=== PATIENT | male | born 1960 | race Two or more races ===

== ENCOUNTER 2017-09-13 04:14 | Emergency (ER) | payer BC ==
[2017-09-13] MEDS ORDERED: Metoclopramide 10 MG/2 ML SDV IVPUSH STA (04:34)
[2017-09-13] MEDS ORDERED: HYDROmorphone 1 MG/ML Syringe IVPUSH ONE ×3 (04:44→07:14)
--- NOTE | 2017-09-13 04:47 | EDM.PDOC ---
ED HPI GENERAL MEDICAL PROBLEM - General Chief Complaint: Abdominal Pain Stated Complaint: VOMMITING,LEFT SIDE PAIN BACK PAIN Time Seen by Provider: 09/13/17 04:34 Source of Information: Reports: Patient History Limitations: Reports: No Limitations - History of Present Illness INITIAL COMMENTS - FREE TEXT/NARRATIVE: 57-year-old male presents to the ED with gradual onset of left upper quadrant abdominal pain. Associated dysuria urgency and frequency which she reports is not all that rare for him. He had abdominal trauma requiring temporary ileostomy and resection of bowel and repair of left kidney with temporary nephrostomy tube drainage area patient has recurrent urinary tract infections particularly of the urinary bladder and is on a medication daily to try and prevent bladder and kidney infection. He felt for rotation yesterday and perhaps low-grade fever. Fever chills but no definitive rigors. Started vomiting about 7:00 last evening and has continued to vomit bilious material without blood. Bowels did work yesterday but he felt like they were incompletely emptied. Pain does radiate into his left flank. States the pain is 9 out of 10. States injuries occurred about 12 years ago. He doesn't think his pancreas or spleen were damaged from the trauma. Onset: Gradual Onset Date: 09/12/17 Onset Time: 19:00 (Is been vomiting since about 1900 hrs. last night.) Duration: Hour(s):, Constant Location: Reports: Abdomen (Left upper quadrant abdominal pain but occasionally radiates across to the right upper abdomen. Radiates into the left flank and somewhat down into the left hemiabdomen.) Quality: Reports: Ache, Other (Occasional colicky component to the pain but otherwise it's a deep boring aching pain.) Severity: Severe Improves with: Reports: None (9 out of 10.), Other (Vomiting does not relieve the pain.) Worsens with: Reports: None Context: Denies: Activity, Exercise, Lifting, Sick Contact, Trauma, Other Associated Symptoms: Reports: Diaphoresis, Fever/Chills (Mild last evening chills for sure), Loss of Appetite, Malaise, Nausea/Vomiting (Intractable nausea and vomiting since 1:00 last night.). 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) (No medication will stay down.) Left Upper Abdominal Pain Score (Numeric/FACES): 8 Bilateral Lower Abdomen Pain Score (Numeric/FACES): 8 - Related Data Allergies Allergy/AdvReac Type Severity Reaction Status Date / Time No Known Allergies Allergy Verified 09/13/17 04:25 Home Meds: Home Meds Doxazosin [Doxazosin Mesylate] 2 mg PO DAILY 09/13/17 [History] Levofloxacin [Levaquin] 500 mg PO DAILY #7 tab 09/13/17 [Rx] Ondansetron [Zofran] 4 mg BUCCAL Q6H PRN #5 tab 09/13/17 [Rx] oxyCODONE HCl/Acetaminophen [Percocet 5-325 mg Tablet] 1 - 2 each PO Q4H PRN # 12 tablet 09/13/17 [Rx] Past Medical History Genitourinary History: Reports: Urostomy Other Genitourinary History: nephrostomy - Past Surgical History GI Surgical History: Reports: Other (See Below) Other GI Surgeries/Procedures: illeostomy Male Surgical History: Reports: Other (See Below) Other Male Surgeries/Procedures: bladder repair Social & Family History - Tobacco Use Smoking Status *Q: Never Smoker - Recreational Drug Use Recreational Drug Use: No - Living Situation & Occupation Living situation: Reports: Occupation: Employed ED ROS GENERAL - Review of Systems Review Of Systems: See Below Constitutional: Reports: Fever, Chills, Malaise, Weakness, Fatigue HEENT: Reports: Glasses Respiratory: Reports: No Symptoms Cardiovascular: Reports: No Symptoms Endocrine: Reports: No Symptoms GI/Abdominal: Reports: Abdominal Pain (See history of present illness), Constipation, Decreased Appetite, Nausea, Vomiting (Intractable nausea and vomiting since 7:00 last night.). Denies: Diarrhea (Occasional problems with constipation) : Reports: Dysuria, Frequency, Urgency Musculoskeletal: Reports: Back Pain (Left flank pain) Skin: Reports: Diaphoresis (Late last evening.) Neurological: Reports: No Symptoms Psychiatric: Reports: No Symptoms Hematologic/Lymphatic: Reports: No Symptoms Immunologic: Reports: No Symptoms ED EXAM, GI/ABD - Physical Exam Exam: See Below Exam Limited By: No Limitations General Appearance: Alert, WD/WN, Moderate Distress (Appears to be injectedDiscomfort.) Eyes: Bilateral: Normal Appearance (No jaundice.) Throat/Mouth: Normal Inspection, Normal Oropharynx Head: Atraumatic, Normocephalic Neck: Normal Inspection, Supple, Non-Tender, Full Range of Motion. No: Lymphadenopathy (L), Lymphadenopathy (R) Respiratory/Chest: No Respiratory Distress, Lungs Clear, Normal Breath Sounds, No Accessory Muscle Use, Chest Non-Tender Cardiovascular: Regular Rate, Rhythm, No Edema, No Gallop, No Murmur, No Rub GI/Abdominal Exam: Soft, No Mass, Pelvis Stable, Guarding, Tender, Abnormal Bowel Sounds (Slightly hyperactive bowel sounds), Other (Large well-healed midline laparotomy wound from xiphisternum to pubic sepsis.). No: Rigid (Very tender left upper quadrant of the abdomen with guarding), Rebound (Male) Exam: No Hernia Back Exam: CVA Tenderness (L). No: CVA Tenderness (R) (Mild.) Extremities: Normal Inspection, Normal Range of Motion, Non-Tender, No Pedal Edema Neurological: Alert, Oriented, CN II-XII Intact, Normal Cognition, Normal Gait Psychiatric: Normal Affect, Normal Mood Skin Exam: Warm, Dry, Intact, Normal Color, No Rash Course - Vital Signs Last Recorded V/S: Last Vital Signs Temp 35.9 C 09/13/17 04:23 Pulse 83 09/13/17 04:23 Resp 16 09/13/17 04:23 BP 156/89 H 09/13/17 04:23 Pulse Ox 93 L 09/13/17 04:23 - Orders/Labs/Meds Orders: Active Orders 24 hr Category Date Time Status CULTURE BLOOD [BC] Stat Lab 09/13/17 05:20 Received CULTURE BLOOD [BC] Stat Lab 09/13/17 05:25 Received CULTURE URINE [RM] Stat Lab 09/13/17 04:30 Received Sodium Chloride 0.9% [Normal Saline] 1,000 ml Med 09/13/17 05:00 Active IV ASDIRECTED Blood Culture x2 Reflex Set [OM.PC] Stat Oth 09/13/17 04:44 Ordered Medication Orders Sodium Chloride (Normal Saline) 1,000 mls @ 500 mls/hr IV ASDIRECTED CHALINO Last Admin: 09/13/17 05:09 Dose: 500 mls/hr Labs: Laboratory Tests 09/13/17 09/13/17 09/13/17 Range/Units 04:30 04:35 04:35 WBC 10.27 H (4.23-9.07) K/mm3 RBC 5.09 (4.63-6.08) M/mm3 Hgb 15.3 (13.7-17.5) gm/L Hct 46.2 (40.1-51.0) % MCV 90.8 (79.0-92.2) fl MCH 30.1 (25.7-32.2) pg MCHC 33.1 (32.2-35.5) g/dl RDW Std Deviation 45.1 H (35.1-43.9) fL Plt Count 252 (163-337) K/mm3 MPV 10.1 (9.4-12.3) fl Neutrophils % (Manual) 77 H (40-60) % Band Neutrophils % 1 (0-10) % Lymphocytes % (Manual) 14 L (20-40) % Atypical Lymphs % 0 % Monocytes % (Manual) 6 (2-10) % Eosinophils % (Manual) 0 L (0.8-7.0) % Basophils % (Manual) 1 (0.2-1.2) Metamyelocytes % 1 Platelet Estimate Adequate Plt Morphology Comment Normal RBC Morph Comment Normal Sodium 140 (136-145) mEq/L Potassium 4.2 (3.5-5.1) mEq/L Chloride 101 (98-107) mEq/L Carbon Dioxide 29 (21-32) mEq/L Anion Gap 14.2 (5-15) BUN 14 (7-18) mg/dL Creatinine 1.3 (0.7-1.3) mg/dL Est Cr Clr Drug Dosing 64.73 mL/min Estimated GFR (MDRD) 57 (>60) mL/min BUN/Creatinine Ratio 10.8 L (14-18) Glucose 184 H (74-106) mg/dL Calcium 10.0 (8.5-10.1) mg/dL Total Bilirubin 0.8 (0.2-1.0) mg/dL AST 22 (15-37) U/L ALT 32 (16-63) U/L Alkaline Phosphatase 88 (46-116) U/L C-Reactive Protein < 0.2 (<1.0) mg/dL Total Protein 8.5 H (6.4-8.2) g/dl Albumin 4.2 (3.4-5.0) g/dl Globulin 4.3 gm/dL Albumin/Globulin Ratio 1.0 (1-2) Lipase 142 (73-393) U/L Urine Color Yellow (Yellow) Urine Appearance Turbid H (Clear) Urine pH 8.5 H (5.0-8.0) Ur Specific [place] 1.020 (1.005-1.030) Urine Protein 1+ H (Negative) Urine Glucose (UA) Negative (Negative) Urine Ketones Negative (Negative) Urine Occult Blood 1+ H (Negative) Urine Nitrite Positive H (Negative) Urine Bilirubin Negative (Negative) Urine Urobilinogen 0.2 (0.2-1.0) Ur Leukocyte Esterase 3+ H (Negative) Urine RBC 0-5 (0-5) /hpf Urine WBC 75-100 H (0-5) /hpf Urine WBC Clumps Moderate (NOT SEEN) /hpf Ur Epithelial Cells Not seen (0-5) /hpf Amorphous Sediment Moderate H (NOT SEEN) /hpf Urine Bacteria Many H (FEW) /hpf Urine Mucus Not seen (FEW) /hpf Meds: Medications Generic Name Dose Route Start Last Admin Trade Name Freq PRN Reason Stop Dose Admin Sodium Chloride 1,000 mls @ 500 mls/hr 09/13/17 05:00 09/13/17 05:09 Normal Saline IV 500 mls/hr ASDIRECTED CHALINO Administration Discontinued Medications Generic Name Dose Route Start Last Admin Trade Name Freq PRN Reason Stop Dose Admin Hydromorphone HCl 1 mg 09/13/17 04:44 09/13/17 05:00 Dilaudid IVPUSH 09/13/17 04:45 Not Given ONETIME ONE Hydromorphone HCl 0.5 mg 09/13/17 04:49 09/13/17 05:00 Dilaudid IVPUSH 09/13/17 04:50 Not Given ONETIME ONE Hydromorphone HCl Confirm 09/13/17 04:59 09/13/17 05:03 Dilaudid Administered 09/13/17 05:00 Not Given Dose 1 mg .ROUTE .STK-MED ONE Hydromorphone HCl 0.5 mg 09/13/17 05:01 09/13/17 07:01 Dilaudid IVPUSH 09/13/17 05:02 Not Given ONETIME ONE Hydromorphone HCl 1 mg 09/13/17 05:01 09/13/17 05:02 Dilaudid IVPUSH 09/13/17 05:02 1 mg ONETIME ONE Administration Hydromorphone HCl 0.5 mg 09/13/17 07:14 Dilaudid IVPUSH 09/13/17 07:15 ONETIME ONE Hydromorphone HCl Confirm 09/13/17 07:51 Dilaudid Administered 09/13/17 07:52 Dose 0.5 mg .ROUTE .STK-MED ONE Hydromorphone HCl Confirm 09/13/17 08:04 Dilaudid Administered 09/13/17 08:05 Dose 0.5 mg .ROUTE .STK-MED ONE Ceftriaxone Sodium 2 gm/ 100 mls @ 200 mls/hr 09/13/17 05:30 Sodium Chloride IV Q24H CHALINO Ceftriaxone Sodium 2 gm/ 100 mls @ 200 mls/hr 09/13/17 05:29 09/13/17 05:39 Sodium Chloride IV 09/13/17 05:58 200 mls/hr ONETIME ONE Administration Metoclopramide HCl 10 mg 09/13/17 04:34 09/13/17 04:40 Reglan IVPUSH 09/13/17 04:35 10 mg ONETIME STA Administration - Radiology Interpretation Free Text/Narrative:: 57-year-old male presents to the ED with gradually increasing pain left upper quadrant of the abdomen rate into his left flank. Patient has had previous traumatic abdominal injury is 12 years ago requiring transient nephrostomy tube drainage of the left kidney reimplantation of the left ureter. He had to have bladder reconstruction after temporarily ileostomy. Therefore he had part of his small bowel resected terminal ileum to reform part of his bladder. This is subsequently made a very prone to urinary tract infections. He states he takes medication daily try prevent bladder infections from occurring. A little ill yesterday with flulike illness and then developed fever and mild chills. Then developed nausea and vomiting and this is been intractable since 7:00 last night. Emesis is bilious without blood. He has associated dysuria urgency and frequency which he says is not all that abnormal for him. Has never had a kidney stone. To his knowledge his left kidney has been functioning well since traumatic injury 12 years ago. Plan IV normal saline at 500 mils an hour. Given Reglan 10 mg IV and Dilaudid 1 mg IV for nausea vomiting and pain relief. Routine labs including blood cultures and serum lipase and CRP to be collected. Urinalysis is already been collected by nursing staff. One view the abdomen will be done. If this does not show anything significant may go on to CT of the abdomen per renal protocol. - Re-Assessments/Exams Free Text/Narrative Re-Assessment/Exam: 09/13/17 05:25 Urinalysis is strongly positive for infection. Positive nitrates and 75-100 WBCs per high-power field with many bacteria appreciated. Urine culture ordered. Will give Rocephin 2 g IV this and his blood cultures 2 are collected. 09/13/17 05:48 Labs reveal a white count of 10.27 with a 77% neutrophils and 1 % band cells reported. Hemoglobin is 15.3 with hematocrit of 46.2. Platelet count is normal 252,000. Sodium is 140 with a potassium of 4.2. Chloride 11 with a bicarbonate of 29. Anion gap is 14.2. BUN is 14 with a creatinine of 1.3. GFR is 57. Glucose is 184 calcium normal at 10.0 total bilirubin 0.8. AST is 22 with an ALT of 32. C-reactive protein is less than 0.2. Lipase normal at 142. Urinalysis is strongly positive for infection with 3+ leukocyte esterase and 75-100 WBCs per high-power field and many bacteria appreciated. He is feeling much better with no further nausea or vomiting. In fact is asking for some Jell-O. 09/13/17 06:56 CT of the abdomen per renal protocol reveals a normal-appearing spleen and liver and pancreas. Both kidneys show mild perinephric stranding and are abnormal in shape---lobulated and shrunken. Previous infections ? Difficult to follow the ureters down from the left kidney. 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 There is evidence of previous fracture of the pubic symphysis. 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 No stones are identified in the urinary bladder or the distribution of the ureters. There is increased stool in the left transverse colon and a large amount of fluid distending several loops of small bowel suspicious for developing small bowl obstruction. . There are no air -fluid levels to suggest obstruction--only fluid. His colicky pain is coming back and therefore he will be given Dilaudid 0.5 mg IV once again. 09/13/17 07:49 He still having colicky type pain. Therefore decided to have him admitted to the hospital due to concerns of developing small bowel obstruction. He does admit that he has not felt any flatus passage for the last 16 hours. Last bowel movement was about 2300 hrs. last night and was normal. Discussed case with Dr. Purdy professional engineer surgeon and he feels due to the nature of his previous abdominal surgeries he is too high risk to operate on here and that he would be better managed in a larger center in case he needs urological surgical intervention as well. After discussion with the patient he is opted to try things at home to see if he opens up on his own over the next 12-24 hours versus traveling to [place] at this time. Is a sister who can drive him to [place] if pain worsens or he continues to vomit and fails to pass any flatus over the next 12-24 hours. Advise sips of clear fluids only. May use Zofran 4 mg under the tongue every 4 hours as necessary for nausea relief. Percocet tabs 5/325 one or 2 every 4-6 hours for pain relief if needed. Sent home 12 tablets. Ideally he needs to start Levaquin 500 mg tomorrow morning if his condition settles in terms that he opens up and passes flatus and has diarrhea. Departure - Departure Time of Disposition: 08:09 Disposition: Home, Self-Care 01 Condition: Fair Clinical Impression: Nausea and vomiting in adult patient, Gastroenteritis, Lower urinary tract infection, Small bowel obstruction, partial Abdominal pain Qualifiers: Abdominal location: left upper quadrant Qualified Code(s): R10.12 - Left upper quadrant pain - Discharge Information Prescriptions: Levofloxacin [Levaquin] 500 mg PO DAILY #7 tab Ondansetron [Zofran] 4 mg BUCCAL Q6H PRN #5 tab PRN Reason: nausea or vomiting oxyCODONE HCl/Acetaminophen [Percocet 5-325 mg Tablet] 1 - 2 each PO Q4H PRN # 12 tablet PRN Reason: pain relief. Referrals: Romain Pulido Jr, MD [Primary Care Provider] - Forms: ED Department Discharge Additional Instructions: Evaluation in the emergency room this morning in regards to left upper quadrant abdominal pain which has a strong colicky component. Associated nausea and vomiting since 7:00 last night. Normal bowel movements late last evening before midnight. No appreciable passage of gas or stool since that time. Lab work revealed a normal white count with no signs of systemic infection. Urine tested positive for a urinary tract infection and you therefore were given Rocephin 2 g intravenously for urinary tract infection. A plain film of the abdomen was carried out and did not reveal any air-fluid levels or signs of bowel obstruction. ET of the abdomen was carried out to rule out a stone in the left kidney or ureter to be causing your pain. No stones were identified however on CT exam CT did identify stool within the left hemicolon and the splenic flexure up overlying the left kidney. It also identified multiple small bowel loops filled with fluid. It is possible therefore that you are developing a small bowel obstruction. Curb because of multiple adhesions from previous surgical interventions. We discussed hospitalization here but are surgeon felt that she would be too high risk for surgical intervention here if it was required. He suggested that she would be better served by a larger center where urology and Gen. surgery are available. This would be [facility] in [place] as you received care through the [facility] system here in [place]. After discussion you opted to try things at home over the next 12-24 hours in terms of sips of clear fluids. The ulloa is that you're bowels began to move or you pass flatus or gas per rectum. This will likely be followed by diarrhea stool. If vomiting recurs or pain worsens in spite of medication suggest traveling to [facility] for admission to hospital. Today only clear fluids such as Gatorade Powerade water etc. Suggest no food. Jell-O would be okay. May use Zofran 4 mg under the tongue every 4 hours as necessary for relief of nausea or vomiting. May use Percocet tablets 12/01/24 one or 2 every 4-6 hours for pain relief if needed. You need to take an antibiotic tomorrow and a prescription was written for Levaquin 500 mg once daily for his lower urinary tract infection. However he could only start this medication if you're bowels are moving and you are no longer vomiting. - My Orders Last 24 Hours: My Active Orders 09/13/17 04:30 CULTURE URINE [RM] Stat 09/13/17 04:44 Blood Culture x2 Reflex Set [OM.PC] Stat 09/13/17 05:00 Sodium Chloride 0.9% [Normal Saline] 1,000 ml IV ASDIRECTED 09/13/17 05:20 CULTURE BLOOD [BC] Stat 09/13/17 05:25 CULTURE BLOOD [BC] Stat - Assessment/Plan Last 24 Hours: My Active Orders 09/13/17 04:30 CULTURE URINE [RM] Stat 09/13/17 04:44 Blood Culture x2 Reflex Set [OM.PC] Stat 09/13/17 05:00 Sodium Chloride 0.9% [Normal Saline] 1,000 ml IV ASDIRECTED 09/13/17 05:20 CULTURE BLOOD [BC] Stat 09/13/17 05:25 CULTURE BLOOD [BC] Stat
[2017-09-13] MEDS: HYDROmorphone 0.5 MG/0.5 ML SYRINGE ONE ×2 (04:57→05:03)
[2017-09-13] MEDS ORDERED: Sodium Chloride 0.9% 1,000 ML IV SCH (05:00)
[2017-09-13] MEDS ORDERED: HYDROmorphone 0.5 MG/0.5 ML SYRINGE IVPUSH ONE ×3 (05:01→08:00)
[2017-09-13] MEDS ORDERED: cefTRIAXone 2 GM in Sodium Chloride 0.9% 100 ML IV ONE (05:29)
[2017-09-13] MEDS ORDERED: cefTRIAXone 2 GM in Sodium Chloride 0.9% 100 ML IV SCH (05:30)
--- NOTE | 2017-09-13 07:03 | CT ---
CT abdomen and pelvis Technique: Multiple axial sections were obtained from above the dome of the diaphragm inferiorly through the pubic symphysis. Intravenous and oral contrast was not utilized. Comparison: No prior study. Penile implant is incidentally noted. Dilated small bowel loops are seen which contain fluid. Difficult to exclude a mild partial small bowel obstruction within the mid to distal small bowel. Visualized lung bases are clear. Liver shows no focal abnormality. Spleen appears within normal limits. Adrenal glands are unremarkable. Both kidneys are lobulated likely representing mild parenchymal scarring. Right ureter shows no dilatation. Cyst is noted within the left kidney measuring 2.8 cm. Left ureter appears to terminate within a portion of bowel raising and please correlate as to surgical history. No abnormal calcifications are seen within the visualized left ureter or within either kidney. Aorta shows no aneurysmal dilatation. Pancreas appears within normal limits. No retroperitoneal adenopathy or mesenteric abnormalities are seen. Surgical anastomotic sutures are seen within the right anterior lower abdomen. No pelvic mass or adenopathy is seen. Bladder wall is dilated likely from poor distention. Bone window settings shows mild scattered degenerative change within the spine. Impression: 1. Mildly dilated fluid-filled bowel raising the question of a mild mid to distal partial small bowel obstruction. 2. Left ureter appears to terminate within a portion of bowel and please correlate with patient's surgical history. 3. Cyst within the left kidney. Mild lobulation of both kidneys felt to relate to scarring. 4. Other incidental findings as noted above. Diagnostic code #3
--- NOTE | 2017-09-13 07:13 | CR ---
Abdomen: Supine view of the abdomen was obtained. Comparison: No prior study. Paucity of bowel gas is noted which is nonspecific. Surgical clips are seen overlying the right transverse process of L5 as well as single surgical clip overlying the right pelvis. No soft tissue abnormality is seen. Bony structures show nothing acute. Impression: 1. Incidental findings. Diagnostic code #2
[2017-09-13] MEDS ORDERED: HYDROmorphone 0.5 MG/0.5 ML SYRINGE ONE ×2 (07:51→08:04)
[2017-09-13] MEDS ORDERED: Ondansetron 4 MG/2 ML SDV IVPUSH ONE (08:06)
[2017-09-13 10:56] VITALS: BP 130/79
== END 2017-09-13 08:25 | disposition home or self-care (01) ==
LOC: JD.ED 04:14
DX: K56.600 Partial intestinal obstruction, unspecified as to cause (principal); K52.9 Noninfective gastroenteritis and colitis, unspecified; N39.0 Urinary tract infection, site not specified; Z79.899 Other long term (current) drug therapy
CPT/HCPCS: 36415; 74018; 74018-26; 74176; 74176-26; 80053; 81001; 83690; 85025; 86140; 87040; 87086; 96361; 96365; 96375; 96376; 99285; 99285-25; J0696; J1170; J2405; J2765; J7030; J7040

== ENCOUNTER 2019-07-10 06:39 | Emergency (ER) | payer BC ==
[2019-07-10] MEDS ORDERED: Ondansetron 4 MG/2 ML SDV IVPUSH ONE ×2 (07:20→10:30)
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
[2019-07-10] MEDS ORDERED: Lactated Ringers 1,000 ML IV SCH (07:30)
--- NOTE | 2019-07-10 10:07 | CR ---
Abdomen: Supine and upright views of the abdomen were obtained. Comparison: Previous abdominal x-ray of 09/13/17. No free air is identified. Small amount of gas is scattered within the abdomen which is unremarkable. No abnormal calcifications or discrete soft tissue abnormality seen. Several surgical clips are seen within the right upper pelvis. Impression: 1. Nothing acute is seen on two-view abdominal x-ray. Diagnostic code #2 This report was dictated in [place] Standard Time
[2019-07-10] MEDS ORDERED: cefTRIAXone 1 GM in Sodium Chloride 0.9% 100 ML IV SCH (13:30)
[2019-07-10] MEDS ORDERED: Metoclopramide 10 MG/2 ML SDV IVPUSH ONE (13:49)
[2019-07-10 14:17] VITALS: BP 158/93; PULSE 78
== END 2019-07-10 14:15 | disposition home or self-care (01) ==
LOC: JD.ED 06:39
DX: N39.0 Urinary tract infection, site not specified (principal); B96.20 Unspecified Escherichia coli [E. coli] as the cause of diseases classified elsewhere; Z16.10 Resistance to unspecified beta lactam antibiotics; N12 Tubulo-interstitial nephritis, not specified as acute or chronic; Z79.899 Other long term (current) drug therapy
CPT/HCPCS: 36415; 51798; 74019; 80053; 81001; 83690; 85007; 85027; 87086; 96361; 96365; 96375; 96376; 99284; J0696; J2405; J2765; J7050; J7120; 87088; 87186; 99283

== ENCOUNTER 2019-07-14 13:47 | Emergency (ER) | payer BC ==
[2019-07-14 14:41] VITALS: BP 126/78; PULSE 70
[2019-07-14] MEDS ORDERED: Ertapenem 1 GM in Sodium Chloride 0.9% 50 ML IV ONE (14:44)
[2019-07-14] MEDS ORDERED: Sodium Chloride 0.9% 10 ML Syringe FLUSH PRN (14:44)
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
--- NOTE | 2019-07-14 16:48 | CT ---
Abdominal and pelvic CT (without contrast) Technique: Multiple axial sections were obtained from above the dome of the diaphragm inferiorly through the pubic symphysis. Intravenous contrast and oral contrast not utilized. Study has been performed as a ureteral stone protocol. Comparison: Previous noncontrast CT study of 09/13/17. Findings: Visualized lung bases show nothing acute. Small stable pleural-based nodule is seen within the lingula. Small pleural-based nodule noted within the right lung base. These findings are unchanged from previous exam there likely incidental. Small nodule is noted within the right middle lung which is not included on previous exam. Small nodule in noted adjacent to the major fissure within the right lung base which is stable. Liver contains no focal abnormality. Gallbladder contains no calcified gallstones. Adrenal glands show no nodule. Pancreas appears within normal limits. Aorta shows no aneurysm. No retroperitoneal adenopathy or mesenteric abnormalities are seen. Surgical material seen anteriorly within the right lower abdomen. Penile implant is noted. Bladder is somewhat elongated in shape with slight trabeculation which is a stable finding from previous exam. Appendix not visualized with certainty. Left kidney shows hydronephrosis as well as dilated left ureter down to its attachment within the left colon. This dilatation is more prominent on prior CT study and difficult to exclude a small stricture at the junction to the bowel. Right ureter shows no dilatation. Several surgical clips are seen adjacent to the right ureter within the mid pelvis. Ill-defined cysts are noted within the right kidney. Right kidney shows cortical thinning and lobulation compatible scarring. Less scarring is seen within the left kidney. No pelvic mass or adenopathy is seen. Small fat-containing left inguinal hernia is noted. Bone window settings were reviewed which shows slight degenerative change within the spine. Impression: 1. Dilated left ureter which terminates within a portion of the left colon. This dilatation is increased from previous CT exam and difficult to exclude stenosis at the distal left ureter at its junction to the colon. 2. Areas of scarring and cortical thinning within the right kidney with lesser scarring within the left kidney. Cysts within the right kidney are noted. 3. Nodules within both lung bases most likely benign since they are unchanged from previous exam. 4. Other incidental findings. No other acute finding is appreciated. Diagnostic code #3 This report was dictated in [place] Standard Time
== END 2019-07-14 17:24 | disposition home or self-care (01) ==
LOC: JD.ED 13:47
DX: R30.0 Dysuria (principal)
CPT/HCPCS: 74176; 96365; 99284; J1335; J7050; 99283

== ENCOUNTER 2019-12-30 03:35 | Emergency (ER) | payer BC ==
[2019-12-30 03:45] VITALS: BP 158/108; PULSE 96
[2019-12-30] MEDS ORDERED: Ondansetron 4 MG Tab.DIS PO ONE (03:56)
--- NOTE | 2019-12-30 04:11 | EDM.PDOC ---
ED HPI GENERAL MEDICAL PROBLEM - General Chief Complaint: Genitourinary Problem Stated Complaint: possible kidney infection Time Seen by Provider: 12/30/19 03:42 Source of Information: Reports: Patient History Limitations: Reports: No Limitations - History of Present Illness INITIAL COMMENTS - FREE TEXT/NARRATIVE: The patient presents with recurrent UTIs. He has a history of UTIs and he is on antibiotics daily. He has some low back pain and nausea. This is like his other UTIs. He has no dysuria. He has no fever or chills. He has no cough, congestion, shortness of breath or abdominal pain. Onset: Gradual Duration: Day(s): Location: Reports: Back Quality: Reports: Ache Severity: Moderate Improves with: Reports: None Worsens with: Reports: None Associated Symptoms: Reports: Nausea/Vomiting. Denies: Chest Pain, Cough, Fever /Chills, Headaches, Shortness of Breath Bilateral Flank Pain Score (Numeric/FACES): 8 - Related Data Allergies Allergy/AdvReac Type Severity Reaction Status Date / Time No Known Allergies Allergy Verified 07/14/19 14:36 Home Meds: Home Meds Doxazosin [Doxazosin Mesylate] 2 mg PO DAILY 09/13/17 [History] Ondansetron [Zofran] 4 mg BUCCAL Q6H PRN #5 tab 09/13/17 [Rx] oxyCODONE HCl/Acetaminophen [Percocet 5-325 mg Tablet] 1 - 2 each PO Q4H PRN # 12 tablet 09/13/17 [Rx] Tetracycline HCl 500 mg PO BID #14 capsule 12/30/19 [Rx] Past Medical History HEENT History: Reports: Impaired Vision Other HEENT History: Wears glasses Genitourinary History: Reports: Hydronephrosis, Urostomy, UTI, Recurrent Other Genitourinary History: nephrostomy - Past Surgical History GI Surgical History: Reports: Other (See Below) Other GI Surgeries/Procedures: illeostomy Male Surgical History: Reports: Other (See Below) Other Male Surgeries/Procedures: bladder repair Social & Family History - Tobacco Use Smoking Status *Q: Never Smoker - Recreational Drug Use Recreational Drug Use: No - Living Situation & Occupation Living situation: Reports: Occupation: Employed ED ROS GENERAL - Review of Systems Review Of Systems: See Below Constitutional: Reports: No Symptoms HEENT: Reports: No Symptoms Respiratory: Reports: No Symptoms Cardiovascular: Reports: No Symptoms Endocrine: Reports: No Symptoms GI/Abdominal: Reports: Nausea. Denies: Abdominal Pain, Vomiting : Reports: Flank Pain Musculoskeletal: Reports: Back Pain ED EXAM, GI/ABD - Physical Exam Exam: See Below Exam Limited By: No Limitations General Appearance: Alert, No Apparent Distress Ears: Normal External Exam Nose: Normal Inspection Head: Atraumatic, Normocephalic Neck: Normal Inspection Respiratory/Chest: No Respiratory Distress, Lungs Clear, Normal Breath Sounds Cardiovascular: Regular Rate, Rhythm, No Edema, No Murmur GI/Abdominal Exam: Soft, Non-Tender, No Organomegaly, No Mass Back Exam: Normal Inspection Extremities: Normal Inspection Course - Vital Signs Last Recorded V/S: Last Vital Signs Temp 97.9 F 12/30/19 03:42 Pulse 96 12/30/19 03:42 Resp 19 12/30/19 03:42 BP 158/108 H 12/30/19 03:42 Pulse Ox 96 12/30/19 03:42 - Orders/Labs/Meds Orders: Active Orders 24 hr Category Date Time Status CULTURE URINE [RM] Stat Lab 12/30/19 03:50 Received UA W/MICROSCOPIC [URIN] Stat Lab 12/30/19 03:50 Results cefTRIAXone 1 GM with Lidocaine 1% 2.1 ML IM Med 12/30/19 04:15 Ordered cefTRIAXone [Rocephin] 1 gm Lidocaine 1% [Xylocaine 1%] 2.1 ml IM Q24H Labs: Laboratory Tests 12/30/19 Range/Units 03:50 Urine Color Yellow (Yellow) Urine Appearance Clear (Clear) Urine pH 7.0 (5.0-8.0) Ur Specific [place] 1.020 (1.005-1.030) Urine Protein Negative (Negative) Urine Glucose (UA) Negative (Negative) Urine Ketones Negative (Negative) Urine Occult Blood Trace-intact H (Negative) Urine Nitrite Positive H (Negative) Urine Bilirubin Negative (Negative) Urine Urobilinogen 0.2 (0.2-1.0) Ur Leukocyte Esterase 3+ H (Negative) Meds: Medications Discontinued Medications Generic Name Dose Route Start Last Admin Trade Name Freq PRN Reason Stop Dose Admin Ondansetron HCl 4 mg 12/30/19 03:56 Zofran Odt PO 12/30/19 03:57 ONETIME ONE - Re-Assessments/Exams Free Text/Narrative Re-Assessment/Exam: 12/30/19 04:07 His UA does show a UTI. I will send it for culture. His past cultures have been growing out E-coli resistant to many antibiotics. It appears the E-coli is susceptible to tetracyclines so I will get him on 500mg BID. Departure - Departure Time of Disposition: 04:15 Disposition: Home, Self-Care 01 Condition: Good Clinical Impression: UTI, Urinary tract infectious disease - Discharge Information *PRESCRIPTION DRUG MONITORING PROGRAM REVIEWED*: Not Applicable *COPY OF PRESCRIPTION DRUG MONITORING REPORT IN PATIENT WILLIAM: Not Applicable Prescriptions: Tetracycline HCl 500 mg PO BID #14 capsule Referrals: Romain Pulido Jr, MD [Primary Care Provider] - 1 Week Additional Instructions: Take the tetracycline 2 times per day. [facility] opens up at noon until 4 tomorrow. Take tylenol or motrin for any fever or pain. Take zofran as needed for nausea. Please return if you are worse. Sepsis Event Note - Evaluation Sepsis Screening Result: No Definite Risk - Focused Exam Vital Signs: Vital Signs Temp Pulse Resp BP Pulse Ox 12/30/19 03:42 97.9 F 96 19 158/108 H 96 Date Exam was Performed: 12/30/19 Time Exam was Performed: 04:04 - My Orders Last 24 Hours: My Active Orders 12/30/19 03:50 CULTURE URINE [RM] Stat UA W/MICROSCOPIC [URIN] Stat 12/30/19 04:15 cefTRIAXone 1 GM with Lidocaine 1% 2.1 ML IM cefTRIAXone [Rocephin] 1 gm Lidocaine 1% [Xylocaine 1%] 2.1 ml IM Q24H - Assessment/Plan Last 24 Hours: My Active Orders 12/30/19 03:50 CULTURE URINE [RM] Stat UA W/MICROSCOPIC [URIN] Stat 12/30/19 04:15 cefTRIAXone 1 GM with Lidocaine 1% 2.1 ML IM cefTRIAXone [Rocephin] 1 gm Lidocaine 1% [Xylocaine 1%] 2.1 ml IM Q24H
[2019-12-30] MEDS ORDERED: cefTRIAXone 1 GM, Lidocaine 1% 2.1 ML IM SCH ×2 (04:15)
== END 2019-12-30 04:40 | disposition home or self-care (01) ==
LOC: JD.ED 03:35
DX: N39.0 Urinary tract infection, site not specified (principal); Z79.899 Other long term (current) drug therapy
CPT/HCPCS: 81001; 87086; 87088; 87186; 99283; A9270; J0696; J2001

== ENCOUNTER 2020-03-01 14:17 | Emergency (ER) | payer BC ==
[2020-03-01 14:27] VITALS: BP 127/76; PULSE 110
[2020-03-01] MEDS ORDERED: Lidocaine 2% Jelly 10 ML Urojet MUCMEM ONE (15:40)
--- NOTE | 2020-03-01 15:47 | EDM.PDOC ---
ED HPI GENERAL MEDICAL PROBLEM - General Chief Complaint: Genitourinary Problem Stated Complaint: POSS UTI Time Seen by Provider: 03/01/20 14:27 Source of Information: Reports: Patient, RN Notes Reviewed - History of Present Illness INITIAL COMMENTS - FREE TEXT/NARRATIVE: 59 yr old male with voiding dysuria, urgency, frequency that started about a week ago with sx worse yesterday and today. also has noticed some swelling of the L scrotum. No fever or chills. Mild L low back pain. No nausea or vomiting. Hx of chronic UTI's. Pt states his Urologist has recomended daily nightime bernstein cath drainage but insurance will only cover 1 catheter per month so he has not been doing that. Was last seen here in the ED with similar sx 2 months ago. Left Scrotum Pain Score (Numeric/FACES): 8 - Related Data Allergies Allergy/AdvReac Type Severity Reaction Status Date / Time No Known Allergies Allergy Verified 03/01/20 14:26 Home Meds: Home Meds Doxazosin [Doxazosin Mesylate] 2 mg PO DAILY 09/13/17 [History] Ondansetron [Zofran] 4 mg BUCCAL Q6H PRN #5 tab 09/13/17 [Rx] oxyCODONE HCl/Acetaminophen [Percocet 5-325 mg Tablet] 1 - 2 each PO Q4H PRN #12 tablet 09/13/17 [Rx] Tetracycline HCl 500 mg PO BID #14 capsule 12/30/19 [Rx] Doxycycline [Vibramycin] 100 mg PO BID #20 tab 03/01/20 [Rx] Past Medical History HEENT History: Reports: Impaired Vision Other HEENT History: Wears glasses Genitourinary History: Reports: Hydronephrosis, Urostomy, UTI, Recurrent Other Genitourinary History: nephrostomy - Past Surgical History GI Surgical History: Reports: Other (See Below) Other GI Surgeries/Procedures: illeostomy Male Surgical History: Reports: Other (See Below) Other Male Surgeries/Procedures: bladder repair Social & Family History - Tobacco Use Smoking Status *Q: Never Smoker Second Hand Smoke Exposure: No - Caffeine Use Caffeine Use: Reports: Coffee - Recreational Drug Use Recreational Drug Use: No - Living Situation & Occupation Living situation: Reports: Occupation: Employed ED ROS GENERAL - Review of Systems Review Of Systems: See Below Constitutional: Denies: Fever, Chills, Diaphoresis HEENT: Reports: No Symptoms Respiratory: Denies: Shortness of Breath Cardiovascular: Denies: Chest Pain GI/Abdominal: Denies: Abdominal Pain, Nausea, Vomiting : Reports: Dysuria, Frequency, Urgency. Denies: Hematuria Musculoskeletal: Reports: Back Pain Skin: Denies: Rash Neurological: Reports: No Symptoms ED EXAM, RENAL/ - Physical Exam Exam: See Below General Appearance: Alert, No Apparent Distress Head: Atraumatic. No: Facial Swelling Neck: Supple Respiratory/Chest: No Respiratory Distress, Lungs Clear, Normal Breath Sounds Cardiovascular: Tachycardia GI/Abdominal: Soft, Non-Tender. No: Distended (Male) Exam: Scrotal Swelling (Mild L, Mild erythema bilat scrotum, mild tenderness post cords L scrotum) Extremities: Normal Inspection. No: Leg Pain Neurological: Alert, Oriented, No Motor/Sensory Deficits Skin Exam: Warm, Dry Course - Vital Signs Last Recorded V/S: Last Vital Signs Temp 98.5 F 03/01/20 14:22 Pulse 110 H 03/01/20 14:22 Resp 16 03/01/20 14:22 BP 127/76 03/01/20 14:22 Pulse Ox 97 03/01/20 14:22 - Orders/Labs/Meds Orders: Active Orders 24 hr Category Date Time Status Bernstein Catheter Insertion [Insert Urinary Catheter] [OM. Care 03/01/20 15:45 Ordered PC] Q24H Labs: Laboratory Tests 03/01/20 Range/Units 14:45 Urine Color Yellow (Yellow) Urine Appearance Cloudy H (Clear) Urine pH 7.0 (5.0-8.0) Ur Specific [place] 1.020 (1.005-1.030) Urine Protein Negative (Negative) Urine Glucose (UA) Negative (Negative) Urine Ketones Negative (Negative) Urine Occult Blood 1+ H (Negative) Urine Nitrite Negative (Negative) Urine Bilirubin Negative (Negative) Urine Urobilinogen 0.2 (0.2-1.0) Ur Leukocyte Esterase 3+ H (Negative) Urine RBC 5-10 H (0-5) /hpf Urine WBC >100 H (0-5) /hpf Ur Squamous Epith Cells 0-5 (0-5) /hpf Urine Bacteria Many H (FEW) /hpf Urine Mucus Not seen (FEW) /hpf Meds: Medications Discontinued Medications Generic Name Dose Route Start Last Admin Trade Name [place] PRN Reason Stop Dose Admin Lidocaine HCl 10 ml 03/01/20 15:40 03/01/20 15:48 Xylocaine 2% Jelly MUCMEM 03/01/20 15:41 10 ml ONETIME ONE Administration - Re-Assessments/Exams Free Text/Narrative Re-Assessment/Exam: 03/01/20 15:47 Ua strongly positive for UTI as expected. Departure - Departure Time of Disposition: 15:49 Disposition: Home, Self-Care 01 Condition: Fair Clinical Impression: Epididymitis UTI (urinary tract infection) Qualifiers: Urinary tract infection type: acute cystitis Hematuria presence: without hematuria Qualified Code(s): N30.00 - Acute cystitis without hematuria - Discharge Information Prescriptions: Doxycycline [Vibramycin] 100 mg PO BID #20 tab Instructions: Urinary Tract Infection, Adult, [id number], Epididymitis Referrals: Romain Pulido Jr, MD [Primary Care Provider] - Forms: ED Department Discharge Additional Instructions: Doxycycline antibiotic 100 mg twice daily for 10 days or until gone. Prescription has been sent electronically to [facility]. Doxycycline can cause skin rash with sun exposure so avoid direct sunlight as best you can while taking the antibiotic. Drink plenty of water to maintain hydration. Bernstein catheter with leg bag. Call your Urologist's nurse early next week for advice on how long to leave the catheter in. Follow up with your Urologist or clinic proivder if symptoms not improving over the next 3 to 5 days as expected. Return to ED as needed if symptoms worsening in any way. Sepsis Event Note (ED) - Evaluation Sepsis Screening Result: No Definite Risk - Focused Exam Vital Signs: Vital Signs Temp Pulse Resp BP Pulse Ox 03/01/20 14:22 98.5 F 110 H 16 127/76 97 - My Orders Last 24 Hours: My Active Orders 03/01/20 15:45 Bernstein Catheter Insertion [Insert Urinary Catheter] [OM.PC] Q24H - Assessment/Plan Last 24 Hours: My Active Orders 03/01/20 15:45 Bernstein Catheter Insertion [Insert Urinary Catheter] [OM.PC] Q24H
== END 2020-03-01 16:30 | disposition home or self-care (01) ==
LOC: JD.ED 14:17
DX: N30.00 Acute cystitis without hematuria (principal); N45.1 Epididymitis
CPT/HCPCS: 51702; 81001; 99283

== ENCOUNTER 2022-12-09 15:04 | Emergency (ER) | payer BC ==
[2022-12-09 16:05] LABS: APPEARANCE,URINE CLOUDY (Clear); BILIRUBIN,URINE NEGATIVE (Negative); COLOR,URINE YELLOW (Yellow); GLUCOSE,URINE NEGATIVE (Negative); KETONES,URINE NEGATIVE (Negative); LEUKOCYTE ESTERASE,URINE 3+ (Negative); NITRITE,URINE NEGATIVE (Negative); OCCULT BLOOD,URINE TRACE-LYSED (Negative); PROTEIN,URINE 1+ (Negative); UROBILINOGEN,URINE 0.2 (0.2-1.0)
[2022-12-09 16:40] LABS: BACTERIA,URINE MANY /hpf (FEW); MUCUS,URINE FEW /hpf (FEW); RBC,URINE 75-100 /hpf (0-5); SQUAMOUS EPITHELIAL CELLS,UR 0-5 /hpf (0-5); WBC CLUMPS,URINE MODERATE /hpf (NOT SEEN); WBC,URINE >100 /hpf (0-5)
[2022-12-09] MEDS: Sodium Chloride 0.9% 10 ML Syringe FLUSH PRN ×2 (16:46→20:18)
[2022-12-09 16:56] LABS: BASOPHILS ABSOLUTE AUTO 0.03 K/mm3 (0.01-0.08); BASOPHILS PERCENT AUTO 0.4 % (0.1-1.2); EOSINOPHILS ABSOLUTE AUTO 0.02 K/mm3 (0.04-0.54); EOSINOPHILS PERCENT AUTO 0.3 (0.8-7.0); HEMATOCRIT 17.9 % (40.1-51.0); IMMATURE GRAN ABSOLUTE AUTO 0.01 K/mm3 (0.00-0.10); IMMATURE GRAN PERCENT AUTO 0.1 % (<=1.0); LYMPHOCYTES ABSOLUTE AUTO 0.98 K/mm3 (1.32-3.57); LYMPHOCYTES PERCENT AUTO 12.9 % (21.8-53.1); MEAN CORPUSCULAR HEMOGLOBIN 20.2 pg (25.7-32.2); MEAN CORPUSCULAR HGB CONC 27.4 g/dl (32.2-35.5); MEAN CORPUSCULAR VOLUME 73.7 fl (79.0-92.2); MEAN PLATELET VOLUME 8.5 fl (9.4-12.3); MONOCYTES ABSOLUTE AUTO 0.61 K/mm3 (0.30-0.82); NEUTROPHILS ABSOLUTE AUTO 5.97 K/mm3 (1.78-5.38); NEUTROPHILS PERCENT AUTO 78.3 % (34.0-67.9); PLATELET COUNT,PLT 451 K/mm3 (163-337); RED BLOOD CELL COUNT 2.43 M/mm3 (4.63-6.08); WHITE BLOOD CELL COUNT,WBC 7.62 K/mm3 (4.23-9.07)
[2022-12-09 17:05] LABS: HEMOGLOBIN 4.9 gm/dl (13.7-17.5)
[2022-12-09 17:18] LABS: A/G RATIO 0.8 (1-2); ANION GAP 12.1 (5-15); BILIRUBIN TOTAL 0.3 mg/dL (0.2-1.0); BUN/CREATININE RATIO 15.4 (14-18); C-REACTIVE PROTEIN 3.1 mg/dL (<1.0); CALCIUM 8.5 mg/dL (8.5-10.1); CREATININE 1.3 mg/dL (0.7-1.3); EST CRCL DRUG DOSING (CG) 60.83 mL/min; POTASSIUM,K 4.1 mEq/L (3.5-5.1); PROTEIN TOTAL,TP 6.9 g/dl (6.4-8.2)
[2022-12-09] MEDS ORDERED: cefTRIAXone 2 GM in Sodium Chloride 0.9% 100 ML IV ONE (20:02)
[2022-12-09] MEDS ORDERED: Iopamidol 612 MG/ML 100 ML Bottle IVPUSH ONE (20:40)
[2022-12-09] MEDS ORDERED: Pantoprazole 40 MG Tab.CR PO ONE (21:26)
[2022-12-10 01:16] LABS: BASOPHILS ABSOLUTE AUTO 0.02 K/mm3 (0.01-0.08); BASOPHILS PERCENT AUTO 0.3 % (0.1-1.2); EOSINOPHILS ABSOLUTE AUTO 0.04 K/mm3 (0.04-0.54); EOSINOPHILS PERCENT AUTO 0.7 (0.8-7.0); HEMATOCRIT 27.1 % (40.1-51.0); IMMATURE GRAN ABSOLUTE AUTO 0.01 K/mm3 (0.00-0.10); IMMATURE GRAN PERCENT AUTO 0.2 % (<=1.0); LYMPHOCYTES ABSOLUTE AUTO 0.99 K/mm3 (1.32-3.57); LYMPHOCYTES PERCENT AUTO 16.5 % (21.8-53.1); MEAN CORPUSCULAR HEMOGLOBIN 23.8 pg (25.7-32.2); MEAN CORPUSCULAR HGB CONC 29.9 g/dl (32.2-35.5); MEAN CORPUSCULAR VOLUME 79.5 fl (79.0-92.2); MEAN PLATELET VOLUME 9.1 fl (9.4-12.3); MONOCYTES ABSOLUTE AUTO 0.61 K/mm3 (0.30-0.82); MONOCYTES PERCENT AUTO 10.2 % (5.3-12.2); NEUTROPHILS ABSOLUTE AUTO 4.33 K/mm3 (1.78-5.38); NEUTROPHILS PERCENT AUTO 72.1 % (34.0-67.9); PLATELET COUNT,PLT 420 K/mm3 (163-337); RED BLOOD CELL COUNT 3.41 M/mm3 (4.63-6.08)
[2022-12-10 01:28] LABS: HEMOGLOBIN 8.1 gm/dl (13.7-17.5)
[2022-12-10 01:37] LABS: A/G RATIO 0.7 (1-2); ALBUMIN 2.8 g/dl (3.4-5.0); ANION GAP 12.1 (5-15); BILIRUBIN TOTAL 0.2 mg/dL (0.2-1.0); BUN/CREATININE RATIO 13.8 (14-18); CALCIUM 8.2 mg/dL (8.5-10.1); CREATININE 1.3 mg/dL (0.7-1.3); EST CRCL DRUG DOSING (CG) 60.83 mL/min; POTASSIUM,K 4.1 mEq/L (3.5-5.1)
[2022-12-10 03:11] VITALS: BP 120/69; PULSE 75
== END 2022-12-10 02:15 | disposition home or self-care (01) ==
LOC: JD.ED 15:04
DX: K29.51 Unspecified chronic gastritis with bleeding (principal); N39.0 Urinary tract infection, site not specified; D64.9 Anemia, unspecified; Z87.19 Personal history of other diseases of the digestive system
CPT/HCPCS: 36415; 36430; 74177; 80053; 81001; 85025; 86140; 86850; 86900; 86901; 86922; 87040; 93005; 96365; 99285; A9270; J0696; J3490; P9016; Q9967

== ENCOUNTER 2023-01-05 17:42 | Emergency (ER) | payer BC ==
[2023-01-05] MEDS ORDERED: Sodium Chloride 0.9% 10 ML Syringe FLUSH PRN (18:12)
[2023-01-05 19:05] LABS: BASOPHILS ABSOLUTE AUTO 0.02 K/mm3 (0.01-0.08); BASOPHILS PERCENT AUTO 0.4 % (0.1-1.2); EOSINOPHILS ABSOLUTE AUTO 0.02 K/mm3 (0.04-0.54); EOSINOPHILS PERCENT AUTO 0.4 (0.8-7.0); HEMATOCRIT 19.1 % (40.1-51.0); IMMATURE GRAN ABSOLUTE AUTO 0.01 K/mm3 (0.00-0.10); IMMATURE GRAN PERCENT AUTO 0.2 % (<=1.0); LYMPHOCYTES ABSOLUTE AUTO 0.87 K/mm3 (1.32-3.57); LYMPHOCYTES PERCENT AUTO 16.2 % (21.8-53.1); MEAN CORPUSCULAR HEMOGLOBIN 24.1 pg (25.7-32.2); MEAN CORPUSCULAR HGB CONC 28.8 g/dl (32.2-35.5); MEAN CORPUSCULAR VOLUME 83.8 fl (79.0-92.2); MEAN PLATELET VOLUME 9.6 fl (9.4-12.3); MONOCYTES ABSOLUTE AUTO 0.68 K/mm3 (0.30-0.82); MONOCYTES PERCENT AUTO 12.7 % (5.3-12.2); NEUTROPHILS ABSOLUTE AUTO 3.77 K/mm3 (1.78-5.38); NEUTROPHILS PERCENT AUTO 70.1 % (34.0-67.9); PLATELET COUNT,PLT 300 K/mm3 (163-337); RED BLOOD CELL COUNT 2.28 M/mm3 (4.63-6.08); WHITE BLOOD CELL COUNT,WBC 5.37 K/mm3 (4.23-9.07)
[2023-01-05 19:17] LABS: HEMOGLOBIN 5.5 gm/dl (13.7-17.5)
[2023-01-05 19:32] LABS: A/G RATIO 0.9 (1-2); ALBUMIN 3.1 g/dl (3.4-5.0); ANION GAP 8.9 (5-15); BILIRUBIN TOTAL 0.2 mg/dL (0.2-1.0); BUN/CREATININE RATIO 13.8 (14-18); CALCIUM 8.3 mg/dL (8.5-10.1); CREATININE 1.3 mg/dL (0.7-1.3); EST CRCL DRUG DOSING (CG) 60.83 mL/min; POTASSIUM,K 3.9 mEq/L (3.5-5.1); PROTEIN TOTAL,TP 6.6 g/dl (6.4-8.2)
[2023-01-05 19:33] LABS: SLIDE REVIEW ABNORMAL SMEAR
[2023-01-05] MEDS ORDERED: Sodium Chloride 0.9% 500 ML ONE (20:39)
[2023-01-05] MEDS ORDERED: Ondansetron 4 MG Tab.DIS PO ONE (23:50)
[2023-01-06 02:57] VITALS: BP 126/67; PULSE 88
== END 2023-01-06 02:55 | disposition home or self-care (01) ==
LOC: JD.ED 17:42
DX: C16.9 Malignant neoplasm of stomach, unspecified (principal); D64.9 Anemia, unspecified; I25.2 Old myocardial infarction; Z86.16 Personal history of COVID-19
CPT/HCPCS: 36415; 36430; 80053; 85025; 86850; 86900; 86901; 86922; 96372; 99284; A9270; J3490; J7040; P9016; 99285

== ENCOUNTER 2023-01-12 19:04 | Emergency (ER) | payer BC ==
[2023-01-12] MEDS ORDERED: Sodium Chloride 0.9% 10 ML Syringe FLUSH PRN (19:27)
[2023-01-12 19:47] LABS: BASOPHILS ABSOLUTE AUTO 0.02 K/mm3 (0.01-0.08); BASOPHILS PERCENT AUTO 0.4 % (0.1-1.2); EOSINOPHILS ABSOLUTE AUTO 0.05 K/mm3 (0.04-0.54); HEMATOCRIT 20.9 % (40.1-51.0); LYMPHOCYTES ABSOLUTE AUTO 0.81 K/mm3 (1.32-3.57); LYMPHOCYTES PERCENT AUTO 16.8 % (21.8-53.1); MEAN CORPUSCULAR HEMOGLOBIN 24.4 pg (25.7-32.2); MEAN CORPUSCULAR HGB CONC 29.7 g/dl (32.2-35.5); MEAN CORPUSCULAR VOLUME 82.3 fl (79.0-92.2); MEAN PLATELET VOLUME 9.1 fl (9.4-12.3); MONOCYTES ABSOLUTE AUTO 0.44 K/mm3 (0.30-0.82); MONOCYTES PERCENT AUTO 9.1 % (5.3-12.2); NEUTROPHILS PERCENT AUTO 72.7 % (34.0-67.9); PLATELET COUNT,PLT 335 K/mm3 (163-337); RED BLOOD CELL COUNT 2.54 M/mm3 (4.63-6.08); WHITE BLOOD CELL COUNT,WBC 4.82 K/mm3 (4.23-9.07)
[2023-01-12 19:49] LABS: HEMOGLOBIN 6.2 gm/dl (13.7-17.5)
[2023-01-12 20:13] LABS: A/G RATIO 0.8 (1-2); ALBUMIN 3.1 g/dl (3.4-5.0); ANION GAP 13.2 (5-15); BILIRUBIN TOTAL 0.2 mg/dL (0.2-1.0); CALCIUM 8.9 mg/dL (8.5-10.1); CREATININE 1.3 mg/dL (0.7-1.3); EST CRCL DRUG DOSING (CG) 60.83 mL/min; POTASSIUM,K 4.2 mEq/L (3.5-5.1); PROTEIN TOTAL,TP 6.9 g/dl (6.4-8.2)
[2023-01-12] MEDS ORDERED: Sodium Chloride 0.9% 500 ML ONE (21:08)
[2023-01-13 03:14] LABS: BASOPHILS ABSOLUTE AUTO 0.02 K/mm3 (0.01-0.08); BASOPHILS PERCENT AUTO 0.4 % (0.1-1.2); EOSINOPHILS ABSOLUTE AUTO 0.04 K/mm3 (0.04-0.54); EOSINOPHILS PERCENT AUTO 0.8 (0.8-7.0); HEMATOCRIT 25.5 % (40.1-51.0); HEMOGLOBIN 7.8 gm/dl (13.7-17.5); IMMATURE GRAN ABSOLUTE AUTO 0.01 K/mm3 (0.00-0.10); IMMATURE GRAN PERCENT AUTO 0.2 % (<=1.0); LYMPHOCYTES ABSOLUTE AUTO 0.89 K/mm3 (1.32-3.57); LYMPHOCYTES PERCENT AUTO 18.2 % (21.8-53.1); MEAN CORPUSCULAR HEMOGLOBIN 25.9 pg (25.7-32.2); MEAN CORPUSCULAR HGB CONC 30.6 g/dl (32.2-35.5); MEAN CORPUSCULAR VOLUME 84.7 fl (79.0-92.2); MEAN PLATELET VOLUME 9.2 fl (9.4-12.3); MONOCYTES ABSOLUTE AUTO 0.48 K/mm3 (0.30-0.82); MONOCYTES PERCENT AUTO 9.8 % (5.3-12.2); NEUTROPHILS ABSOLUTE AUTO 3.45 K/mm3 (1.78-5.38); NEUTROPHILS PERCENT AUTO 70.6 % (34.0-67.9); PLATELET COUNT,PLT 277 K/mm3 (163-337); RED BLOOD CELL COUNT 3.01 M/mm3 (4.63-6.08); WHITE BLOOD CELL COUNT,WBC 4.89 K/mm3 (4.23-9.07)
[2023-01-13 03:57] VITALS: BP 128/70; PULSE 72
== END 2023-01-13 03:55 | disposition home or self-care (01) ==
LOC: JD.ED 19:04
DX: D64.9 Anemia, unspecified (principal); I25.2 Old myocardial infarction; Z86.16 Personal history of COVID-19
CPT/HCPCS: 36415; 36430; 80053; 85025; 86850; 86900; 86901; 86922; 99284; J3490; P9016

== ENCOUNTER 2023-05-27 01:49 | Emergency (ER) | payer BC ==
[2023-05-27] MEDS ORDERED: Metoclopramide 10 MG/2 ML SDV IVPUSH ONE ×2 (02:45→08:01)
[2023-05-27] MEDS ORDERED: Dextrose 5%-0.9% NaCl 1,000 ML IV SCH (02:45)
[2023-05-27] MEDS ORDERED: HYDROmorphone 0.5 MG/0.5 ML Syringe IVPUSH ONE (02:46)
[2023-05-27 03:10] LABS: BASOPHILS PERCENT AUTO 0.3 % (0.0-1.0); EOSINOPHILS ABSOLUTE AUTO 0.1 K/mm3 (0.0-0.4); EOSINOPHILS PERCENT AUTO 1.7 % (0.0-6.0); HEMATOCRIT 36.6 % (42.0-52.0); HEMOGLOBIN 12.3 gm/dl (14.0-18.0); IMMATURE GRAN ABSOLUTE AUTO 0.02 K/mm3 (0.00-0.05); IMMATURE GRAN PERCENT AUTO 0.3 % (0.0-0.4); LYMPHOCYTES ABSOLUTE AUTO 1.5 K/mm3 (1.0-4.8); LYMPHOCYTES PERCENT AUTO 21.6 % (24.0-44.0); MEAN CORPUSCULAR HEMOGLOBIN 29.4 pg (28.0-32.0); MEAN CORPUSCULAR HGB CONC 33.6 g/dl (32.0-36.0); MEAN CORPUSCULAR VOLUME 87.4 fl (83.0-99.0); MEAN PLATELET VOLUME 9.1 fl (9.4-12.4); MONOCYTES ABSOLUTE AUTO 0.6 K/mm3 (0.0-0.8); MONOCYTES PERCENT AUTO 8.8 % (0.0-8.0); NEUTROPHILS ABSOLUTE AUTO 4.6 K/mm3 (1.8-7.7); NEUTROPHILS PERCENT AUTO 67.3 % (41.0-71.0); PLATELET COUNT,PLT 304 K/mm3 (150-400); RED BLOOD CELL COUNT 4.19 M/mm3 (4.52-5.90)
[2023-05-27 03:35] LABS: APPEARANCE,URINE TURBID (Clear); BILIRUBIN,URINE NEGATIVE (Negative); COLOR,URINE YELLOW (Yellow); GLUCOSE,URINE NEGATIVE (Negative); KETONES,URINE 1+ (Negative); LEUKOCYTE ESTERASE,URINE 3+ (Negative); NITRITE,URINE POSITIVE (Negative); OCCULT BLOOD,URINE 2+ (Negative); PROTEIN,URINE 2+ (Negative); UROBILINOGEN,URINE 0.2 (0.2-1.0)
[2023-05-27 03:37] LABS: INR 1.02; PROTHROMBIN TIME 10.9 SECONDS (9.7-12.0)
[2023-05-27 03:38] LABS: PTT,PARTIAL THROMBOPLSTIN TIME 26.8 SECONDS (21.7-31.4)
[2023-05-27 03:47] LABS: A/G RATIO 0.8 (1-2); ALANINE AMINOTRANSFERASE,ALT 22 U/L (16-63); ALBUMIN 3.7 g/dl (3.4-5.0); ALKALINE PHOSPHATASE 126 U/L (46-116); ANION GAP 16.7 (5-15); ASPARTATE AMNIOTRANSFERASE,AST 19 U/L (15-37); BILIRUBIN TOTAL 0.6 mg/dL (0.2-1.0); BLOOD UREA NITROGEN,BUN 17 mg/dL (7-18); BUN/CREATININE RATIO 12.1 (14-18); C-REACTIVE PROTEIN 6.3 mg/dL (<1.0); CARBON DIOXIDE,CO2 27 mEq/L (21-32); CHLORIDE,CL 98 mEq/L (98-107); CREATININE 1.4 mg/dL (0.7-1.3); ESTIMATED GFR 57 mL/min (>60); GLUCOSE RANDOM 138 mg/dL (70-99); POTASSIUM,K 4.7 mEq/L (3.5-5.1); PROTEIN TOTAL,TP 8.5 g/dl (6.4-8.2); SODIUM,NA 137 mEq/L (136-145)
[2023-05-27 03:49] LABS: EPITHELIAL CELLS,URINE NOT SEEN /hpf (0-5); WBC CLUMPS,URINE FEW /hpf (NOT SEEN); WBC,URINE >100 /hpf (0-5)
[2023-05-27 03:50] LABS: AMORPHOUS SEDIMENT,URINE FEW /hpf (NOT SEEN); BACTERIA,URINE MANY /hpf (FEW); MUCUS,URINE NOT SEEN /hpf (FEW)
[2023-05-27 03:54] LABS: LACTIC ACID 1.6 mmol/L (0.4-2.0)
[2023-05-27 03:58] LABS: LIPASE 346 U/L (16-77)
[2023-05-27] MEDS ORDERED: Ertapenem 1 GM Vial IVPUSH ONE (04:43)
[2023-05-27] MEDS ORDERED: Sodium Chloride 0.9% 1,000 ML IV SCH (04:45)
[2023-05-27] MEDS ORDERED: Iopamidol 612 MG/ML 100 ML Bottle IVPUSH ONE (05:55)
[2023-05-27] MEDS ORDERED: HYDROmorphone 1 MG/ML Syringe IVPUSH ONE (07:56)
[2023-05-27 15:29] VITALS: BP 151/90; PULSE 76
== END 2023-05-27 13:35 | disposition home or self-care (01) ==
LOC: JD.ED 01:49
DX: K85.90 Acute pancreatitis without necrosis or infection, unspecified (principal); N12 Tubulo-interstitial nephritis, not specified as acute or chronic; N39.0 Urinary tract infection, site not specified; I25.2 Old myocardial infarction; Z86.16 Personal history of COVID-19; Z79.899 Other long term (current) drug therapy; Z85.028 Personal history of other malignant neoplasm of stomach; Z98.890 Other specified postprocedural states
CPT/HCPCS: 36415; 74177; 80053; 81001; 83605; 83690; 83735; 83880; 85025; 85610; 85730; 86140; 87040; 87086; 87088; 87186; 96361; 96374; 96375; 96376; 99285; G0103; J1170; J1335; J2765; J7030; J7042; Q9967; 99284